=== PATIENT | female | born 1970 | race Caucasian/White ===

== ENCOUNTER 2023-12-05 12:34 | Emergency (ER) | payer BC, SELFPAY ==
[2023-12-05 12:39] VITALS: BP 119/43
[2023-12-05 13:04] LABS: % Basophils 0.6 % (0-2); % Immature Granulocytes 0.3 % (0-0.5); % Lymphocytes 9.3 % (20.5-51.1); % Monocytes 9.6 % (1.7-9.3); % Neutrophils 79.2 % (42.2-75.2); Absolute Basophils 0.1 10^3/uL (0-0.2); Absolute Eosinophils 0.2 10^3/uL (0-0.7); Absolute Immature Granulocytes 0.1 10^3/uL (0-0.05); Absolute Lymphocytes 1.4 10^3/uL (1.2-3.4); Absolute Monocytes 1.5 10^3/uL (0.1-0.6); Absolute Neutrophils 12.3 10^3/uL (1.4-6.5); Hematocrit 39.1 % (37.0-47.0); Hemoglobin 13.3 g/dL (12.0-16.0); Mean Corpuscular Hgb 31.1 pg (27.0-31.0); Mean Corpuscular Volume 91.4 fL (81.0-99.0); Mean Platelet Volume 10.8 fL (7.4-10.4); Nucleated Red Blood Cells % 0 %; Platelet Count 297 10^3/uL (130-400); Red Blood Cell Count 4.28 10^6/uL (4.20-5.40); Red Cell Dist. Width 12.2 % (11.5-14.5); White Blood Cell Count 15.6 10^3/uL (4.8-10.8)
[2023-12-05 13:09] LABS: Urine Albumin Negative (Neg - Trace); Urine Bilirubin Negative (Negative); Urine Character Clear (Clear); Urine Color Yellow; Urine Glucose Negative (Negative); Urine Ketone Negative (Negative); Urine Leukocyte Negative (Negative); Urine Nitrite Negative (Negative); Urine Occult Blood Negative (Negative); Urine Specific Gravity 1.005 (<1.030); Urine Urobilinogen Negative (Neg - 1+)
[2023-12-05 14:03] LABS: ALT (SGPT) 13 U/L (0-35); AST (SGOT) 22 U/L (14-36); Albumin 4.9 g/dl (3.5-5.0); Alkaline Phosphatase 56 U/L (38-126); Blood Urea Nitrogen 9 mg/dl (7-17); Carbon Dioxide 23 mmol/L (22-30); Chloride 104 mmol/L (98-107); Glucose 106 mg/dl (70-99); Potassium 4.1 mmol/L (3.5-5.1); Sodium 135 mmol/L (135-145); Total Bilirubin 0.9 mg/dl (0.2-1.3); Total Protein 7.7 g/dl (6.3-8.2); eGFR > 60.00
--- NOTE | 2023-12-05 14:18 | ED.GENMED ---
History of Present Illness
<Lola Estrada PA-C - Last Filed: 12/05/23 17:14>
General
Chief Complaint: Abdominal Pain
Source: patient
Exam Limitations: none
Time Seen by Provider: 12/05/23 13:55
Nursing documentation reviewed up to this point in time: agreed with
Travel History
Have you had any contact with someone who has COVID-19?: No
Do you have any symptoms of coronavirus? Fever > 100 degrees, chills, cough, shortness of breath, sore throat, loss of taste or smell, muscle aches, or headache?: No
History of Present Illness
History of Present Illness:
Patient is a 53-year-old female with no significant past medical history presenting for evaluation of abdominal pain. Symptoms started yesterday afternoon around 3 PM while patient was driving home and she describes it as a sharp pain in her left
flank with radiation to her left groin. Symptoms persisted and worsened overnight and are now located most prominently in the left lower quadrant with radiation to the pelvis. She describes the pain as constant. Pain is associated with mild nausea
and subjective fever. No vomiting, urinary symptoms. Patient does state that on Monday, 2 days ago, she had multiple episodes of diarrhea which she attributed to what she ate on Monday night. She also endorses some blood in her stool a few
weeks ago which resolved. Patient denies any alleviating or exacerbating factors to pain. She has taken some Tylenol most recently at 7 AM this morning which does take the edge off.
Patient's last menstrual period was approximately 4 months ago.
Patient does state that both her mom and her 3 brothers have a history of diverticulitis. She has never had this pain before.
Phy Exam
<Lola Estrada PA-C - Last Filed: 12/05/23 17:14>
Physical Exam
Physical Exam:
General: In no apparent distress, non-toxic appearing
Vitals: Vital signs stable, afebrile
HEENT: Atraumatic, normocephalic; protecting airway
Neck: appears supple, no meningeal signs
CV: Regular rate and rhythm, heart sounds normal, no evidence of cyanosis
Resp: No evidence of respiratory distress, lungs clear, no accessory muscle use
Abd: Soft, mild to moderate tenderness in left lower quadrant and suprapubic region without rebound or guarding, no CVA tenderness
Extremities: No deformities, no evidence of cyanosis or edema
Neuro: alert and oriented x 3; grossly
Psych: Normal affect
Skin: Intact, no rashes
Course
<Lola Estrada PA-C - Last Filed: 12/05/23 17:14>
Orders/Labs/Results
Orders:
Orders
12/05/23 12:47
Complete Blood Count/With Diff Urgent
Comprehensive Metabolic Panel Urgent
HCG, Serum Qualitative Screen Urgent
Comment: ADD ON
12/05/23 12:52
Urinalysis Reflex To Culture Urgent
Date Specimen was Collected: 12/05/23
Time Specimen was Collected: 12:44
12/05/23 14:16
Add On- LAB Urgent
Tests Added?: serum qual hcg
0.9% Sodium Chloride 1000 ml [Nss] 1,000 ml IV BOLUS
Ketorolac [Toradol] 15 mg IV NOW STA
12/05/23 14:17
CT Abd/pelvis W Iv Cont Urgent
Comment:
Reason For Exam: LLQ abdominal pain
12/05/23 15:46
Amoxicillin 875 mg/Clav 125 mg [Augmentin 875 mg/125 mg] 1 tablet PO NOW STA
Abnormal Lab Results
12/05/23
12:47
WBC 15.6 H 10^3/uL
(4.8-10.8)
MCH 31.1 H pg
(27.0-31.0)
MPV 10.8 H fL
(7.4-10.4)
Abs Immat Gran (auto) 0.1 H 10^3/uL
(0-0.05)
Absolute Neuts (auto) 12.3 H 10^3/uL
(1.4-6.5)
Absolute Monos (auto) 1.5 H 10^3/uL
(0.1-0.6)
Neutrophils % 79.2 H %
(42.2-75.2)
Lymphocytes % 9.3 L %
(20.5-51.1)
Monocytes % 9.6 H %
(1.7-9.3)
Glucose 106 H mg/dl
(70-99)
12/05/23 12:47
12/05/23 12:47
Vital Signs
Initial and Last Documented VS:
Initial Vital Signs
Temp Pulse Resp BP Pulse Ox
98.2 F 70 20 119/43 100
12/05/23 12:39 12/05/23 12:39 12/05/23 12:39 12/05/23 12:39 12/05/23 12:39
Last Documented Vital Signs
Temp Pulse Resp BP Pulse Ox
98.9 F 75 18 107/61 100
12/05/23 14:43 12/05/23 16:01 12/05/23 14:43 12/05/23 16:01 12/05/23 14:43
<Roland Watt MD - Last Filed: 12/05/23 14:37>
Orders/Labs/Results
Orders:
Orders
12/05/23 12:47
Complete Blood Count/With Diff Urgent
Comprehensive Metabolic Panel Urgent
HCG, Serum Qualitative Screen Urgent
Comment: ADD ON
12/05/23 12:52
Urinalysis Reflex To Culture Urgent
Date Specimen was Collected: 12/05/23
Time Specimen was Collected: 12:44
12/05/23 14:16
Add On- LAB Urgent
Tests Added?: serum qual hcg
0.9% Sodium Chloride 1000 ml [Nss] 1,000 ml IV BOLUS
Ketorolac [Toradol] 15 mg IV NOW STA
12/05/23 14:17
CT Abd/pelvis W Iv Cont Urgent
Comment:
Reason For Exam: LLQ abdominal pain
12/05/23 15:46
Amoxicillin 875 mg/Clav 125 mg [Augmentin 875 mg/125 mg] 1 tablet PO NOW STA
Abnormal Lab Results
12/05/23
12:47
WBC 15.6 H 10^3/uL
(4.8-10.8)
MCH 31.1 H pg
(27.0-31.0)
MPV 10.8 H fL
(7.4-10.4)
Abs Immat Gran (auto) 0.1 H 10^3/uL
(0-0.05)
Absolute Neuts (auto) 12.3 H 10^3/uL
(1.4-6.5)
Absolute Monos (auto) 1.5 H 10^3/uL
(0.1-0.6)
Neutrophils % 79.2 H %
(42.2-75.2)
Lymphocytes % 9.3 L %
(20.5-51.1)
Monocytes % 9.6 H %
(1.7-9.3)
Glucose 106 H mg/dl
(70-99)
12/05/23 12:47
12/05/23 12:47
Vital Signs
Initial and Last Documented VS:
Initial Vital Signs
Temp Pulse Resp BP Pulse Ox
98.2 F 70 20 119/43 100
12/05/23 12:39 12/05/23 12:39 12/05/23 12:39 12/05/23 12:39 12/05/23 12:39
Last Documented Vital Signs
Temp Pulse Resp BP Pulse Ox
98.9 F 75 18 107/61 100
12/05/23 14:43 12/05/23 16:01 12/05/23 14:43 12/05/23 16:01 12/05/23 14:43
<Lola Estrada PA-C - Last Filed: 12/05/23 17:14>
MDM/Problems Addressed
Differential Diagnosis Includes:
Diverticulitis, pyelonephritis, cystitis, kidney stone, ovarian cyst, tubo-ovarian abscess, ectopic , appendicitis, constipation
MDM/Problems Addressed:
Patient is a 53-year-old female with no significant past medical history presenting for evaluation of left lower quadrant abdominal pain worsening over the past 24 hours associate with mild nausea. No fever or urinary symptoms. Patient's vital
signs are acceptable upon arrival, she is afebrile. Physical exam as documented above. Her abdomen is soft and mild to moderately tender in the left lower quadrant and suprapubic without rebound or guarding. Labs obtained in triage are
significant for leukocytosis of 15.6. CMP without any clinically significant abnormalities. Urine without any evidence of blood or infection. Will add on test given she is perimenopausal. Toradol for pain, starting IV fluids. Will
check CT of abdomen/pelvis
Patient appears more comfortable following Toradol. CT pending.
CT shows findings consistent with acute sigmoid diverticulitis without evidence of perforation or abscess. Findings discussed with patient. Patient remains stable and able to tolerate oral intake. Pain is essentially controlled. She is a
candidate for outpatient management. Will discharge with return precautions, Augmentin for 10 days. First dose of Augmentin given in emergency department. Patient comfortable this plan. All questions answered.
Chronic conditions affecting care:
N/A
Acute Exacerbation and/or Progression of Chronic Illness:
Acute diverticulitis
<Lola Estrada PA-C - Last Filed: 12/05/23 17:14>
*Radiology
Radiology exam reviewed: preliminary read by ED provider and radiology read reviewed
*Pulse Oximetry
Patient hypoxic: no
*Diesel Engine Inspector Interpretation
Rate: Diesel Engine Inspector- N/A
*Critical Care Note
Total Time (30-74mins, 75-104mins- exclusive of procedures): Not Applicable
ED Attending Note
<Lola Estrada PA-C - Last Filed: 12/05/23 17:14>
-
Portions of this chart may have been created with voice recognition software.� Occasional wrong word or��sound alike� substitutions may have occurred due to the inherent limitations of voice recognition software.
<Roland Watt MD - Last Filed: 12/05/23 14:37>
ED Attending Note
Patient seen and examined by attending physician: Yes
ED Attending Note:
HPI: 53-year-old female with no reported chronic medical issues presents for evaluation of left lower quadrant pain. Patient reports onset of symptoms yesterday afternoon and have been constant since that time although intensity seems to wax and
wane. She reports a sore, aching pain which occasionally becomes sharper; located in the left lower quadrant that radiates towards the flank and occasionally towards the groin. No clear triggering or relieving factors noted. She denies any
associated vomiting but has had some mild nausea poor appetite. No diarrhea. No vaginal bleeding. No urinary symptoms. Subjective fever. She says she has had 3 similar episodes in the past but has not been evaluated for it. She is
perimenopausal last menstrual period was in July.
ROS: Positive for abdominal pain, nausea, fever; negative for vomiting, diarrhea, dysuria, hematuria, change in urinary frequency, vaginal bleeding
Physical exam:
General: Awake, alert, oriented x3; no acute distress
Head: Normocephalic, atraumatic
Eyes: Conjunctiva normal, sclera anicteric
Throat: Airway intact, handling secretions
Neck: Trachea midline, supple without meningismus
Lungs: Breathing comfortably not in distress
Heart: Regular rate
Abd: Soft, non distended, tender to palpation left lower quadrant
Neuro: No gross deficits
Skin: no rash
Extremities: warm and well-perfused
Differential diagnosis: Diverticulitis, nephrolithiasis, UTI/pyelonephritis, colitis, ovarian cyst
Medical decision makin-year-old female presents for evaluation of left lower quadrant abdominal pain since yesterday afternoon. Vital signs normal here. Exam as above. Labs sent off including a CBC which showed a leukocytosis to 15.6, CMP
which showed no clinically significant abnormalities. Urinalysis negative for infection, no blood in the urine. Clinical history seems most consistent with acute diverticulitis. Awaiting results of CT abdomen pelvis. Will treat symptomatically
in the meantime.
Chronic conditions affecting care: N/A
Acute exacerbation or progression of chronic illness: N/A
History source: Patient
Data reviewed: N/A
Medications/testing considered: N/A
Social determinants of health: N/A
Discussion with other providers: N/A
Discharge Plan
Departure
Patient Disposition: Home (Routine Discharge)
Date of Disposition: 12/05/23
Time of Disposition: 15:47
Patient with high blood pressure during this ER visit?: No
Condition: Good
Covid-19: Not Applicable
Discharge Problem:
Acute diverticulitis
Instructions: Low Fiber Diet, Diverticulitis (DC)
Prescriptions:
New
amoxicillin-pot clavulanate 875-125 mg tablet
1 tab PO BID 10 Days Qty: 20 0RF
No Action
prenat.vits,tj,[id number] [ Vitamin] 1 TAB tablet
1 tab PO
Referrals:
Lan Guillaume MD [Family Provider] - Follow up in 1 week
Activity Restrictions/Additional Instructions:
- Return to the emergency department any high fevers, severe abdominal pain, intractable nausea/vomiting, severe back pain, worsening current symptoms, or any other concerns
-Your prescription has been sent to the pharmacy. You should take this medication twice a day for the next 10 days
-You can take Motrin/Tylenol as needed for discomfort
-Stay well-hydrated. Recommend a bland diet and advance as tolerated
-Follow-up with your primary care provider in about a week to ensure symptoms are improving
Interventions
Interventions:
*Risk Screen - Suicide Last Done: 12/05/23 13:20
*General Assessment Last Done: 12/05/23 13:20
*Neglect/Abuse Screening Last Done: 12/05/23 13:20
*ED COVID-19 Vaccine History Last Done: 12/05/23 13:20
*Nursing Disposition Last Done: 12/05/23 16:01
CT-Cftuwq-Odauyrtajc Assessment Last Done: 12/05/23 13:23
Discharge Date and Time
Discharge Date/Time: 12/05/23 16:02
[2023-12-05] MEDS: NSS 1000 IV (14:37)
[2023-12-05] MEDS: TORADOL 15 MG IV (14:38)
[2023-12-05 14:43] VITALS: BP 120/66
[2023-12-05 14:44] VITALS: BMI 21.0
[2023-12-05 15:04] LABS: HCG, Serum Qualitative Screen Negative
[2023-12-05 15:21] VITALS: BP 107/61
[2023-12-05] MEDS: AUGMENTIN 875 MG/125 MG 1 TABLET PO (15:59)
[2023-12-05 16:01] VITALS: BP 107/61
== END 2023-12-05 16:02 | disposition home or self-care (01) ==
LOC: EMR 12:34
PROVIDERS: Emergency Medicine; EMERGENCY PHYSICIAN Emergency Medicine; FAMILY PHYSICIAN Family Medicine
DX: K57.32 Diverticulitis of large intestine without perforation or abscess without bleeding (principal)
CPT/HCPCS: 99285; 96374; 96361; 74177; 80053; 81003; 84703; 85025; Q9967